=== PATIENT | female | born 1975 | race American Indian/Alaskan Native ===

== ENCOUNTER 2017-03-29 11:04 | Emergency (ER) | payer MEDICAID, OTHER ==
--- NOTE | 2017-03-29 12:08 | OBHP ---
Datetime: 03/29/2017 12:00 IP Adm Impression: Term, intrauterine ; No Active Labor IP Adm Impression Other: Advanced Maternal Age. Previous Section. IP Admit Plan: Observation/Evaluation Admit Comment, IP Provider: 42yo G2Pi with IUP at 37.4wks, Previous Section X1, here today for decreased movements and pelvic pressure. She denies VB or LOF. PNC with Dr Stern. Naselle- occasional contraction, FHR- Category 1, Cx-0/40/-3 Assessment: IUP at 37.4wks with Previous C/S X1 NST Reactive. Plan as per Dr Stern: NST BPP and Re evaluate. Pelvic Type - PN: Adequate Extremities - PN: Normal Abdomen - PN: Normal Back - PN: Normal Lungs - PN: Normal Heart - PN: Normal General - PN: Normal Presentation-Admit: Vertex FHR - Baseline A Provider: 140s Membranes, Provider: Intact Gestation - Est Wks by US: 37.4 EGA AdmitDate IP: 37.4 Vital Signs Provider: Reviewed IP Chief Complaint: Maternal discomfort NICHD Variability Prov Fetus A: Moderate 6-25bpm NICHD Accel Fetus A IP Provider: 15X15 FHR Category Provider Fetus A: Category I NICHD Decel Fetus A IP Provider: None Dilatation, Provider: 0 Effacement, Provider: 40 Station, Provider: -3
[2017-03-29 12:13] VITALS: BMI 33.1
[2017-03-29] MEDS ORDERED: Lactated Ringer's 1,000 ML IV SCH (13:00)
--- NOTE | 2017-03-29 14:55 | US ---
PROCEDURE: OB Pelvic Ultrasound HISTORY: Testing COMPARISON: None available. FINDINGS: Ultrasonography of a late stage was performed for evaluation of biophysical profile. breathing movements - 2, movements - 2, tones - 2, at and fluid - 2. Biophysical total score 8/8. A single viable intrauterine gestation is identified in cephalic lie with a posterior placenta. Study is limited due to late stage of gestation in standard biometry was not obtained this biophysical profile exam. N and fluid index measures 18.2 cm. cardiac activity measures 135 beats per minute. OTHER FINDINGS: None. IMPRESSION: A single viable intrauterine gestation identified in cephalic lie without definitive placental abruption or previa. Posterior placenta is identified and biophysical profile score has been calculated to 8/8 as per above.
[2017-03-29 20:11] VITALS: BP 107/66; PULSE 85; RESP 16; TEMP 97.7; O2SAT 97
== END 2017-03-29 16:00 | disposition home or self-care (01) ==
LOC: H.EROB2 11:04
DX: O47.1 False labor at or after 37 completed weeks of gestation (principal); O26.93 Pregnancy related conditions, unspecified, third trimester; R10.2 Pelvic and perineal pain; Z3A.37 37 weeks gestation of pregnancy; Z87.59 Personal history of other complications of pregnancy, childbirth and the puerperium
CPT/HCPCS: 76818; 99284; J7120

== ENCOUNTER 2017-04-02 20:29 | Inpatient (IN) | payer MEDICAID ==
[2017-04-02] MEDS ORDERED: ceFAZolin IV 2 gm in Dextrose 2 GM/50 ML BAG IVPB ONE (21:27)
[2017-04-02] MEDS ORDERED: Bicitra 30 ML UD PO ONE (21:28)
[2017-04-02] MEDS ORDERED: Oxytocin 30 UNITS in Sodium Chloride 0.9% 500 ML IV SCH (21:30)
[2017-04-02] MEDS: Lactated Ringer's 1,000 ML IV SCH ×2 (21:40→22:40)
[2017-04-02] MEDS ORDERED: OXYTOCIN/0.9 % NS 20 UNIT/1,000 ML BAG IV SCH (22:00)
[2017-04-02 22:04] VITALS: RESP 18
[2017-04-02 22:11] LABS: BASO # 0.1 K/uL (0.0-0.2); BASO % 0.7 % (0.0-2.0); EOS # 0.1 K/uL (0.0-0.7); EOS % 1.8 % (0.0-4.0); HEMATOCRIT 35.4 % (34.0-47.0); LYMPH % 24.2 % (20.0-40.0); MEAN CELL VOLUME 82.9 fl (81.0-99.0); MEAN CORPUSCULAR HEMOGLOBIN 26.7 pg (27.0-31.0); MEAN CORPUSCULAR HGB CONC 32.2 g/dL (33.0-37.0); MEAN PLATELET VOLUME 7.8 fl (7.2-11.7); MONO # 0.7 K/uL (0.0-0.8); MONO % 8.1 % (0.0-10.0); NEUT # 5.4 K/uL (1.8-7.0); NEUT % 65.2 % (50.0-75.0); NRBC % 0.2 % (0.0-0.0); RED CELL DISTRIBUTION WIDTH 15.7 % (11.5-14.5); WHITE BLOOD COUNT 8.3 K/uL (4.8-10.8)
[2017-04-02] MEDS ORDERED: Morphine 1 mg/ml preservative-free Inj(Duramorph) ONE (23:34)
[2017-04-02] MEDS ORDERED: ePHEDrine 50 mg/ml Inj ONE (23:39)
[2017-04-03] MEDS ORDERED: cefOXitin IV 1 gm in Dextrose 1 GM/50 ML BAG IVPB SCH (01:00)
--- NOTE | 2017-04-03 02:44 | OBADHP ---
Datetime: 04/02/2017 21:28 Admit Comment, IP Provider: 42yo with IUP at 38.1 wks GA based on LMP 07/09/16, EDC 04/15/17 pre sents to [facility] c/o SROM this evening. Reports +FM and ctx. Denies VB. Hx in 2010. PNC: Dr. 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 Pap: wnl in 09/2016 pmhx: denies pshx: socialhx: denies smoking cigarettes, drinking ETOH or recreational drug use. familyhx: father: HTN meds: pnv allergies: NKDA Assessement: 42 yo IUP @ 38.1 weeks GA has SROM GBS negative Plan: Admit to L_D Continuous heart tracing Labs NPO Dr. Stern is informed and pt is to have repeat tonight. Case d/w on-call hospitalist Dr. Cindy Sanford, PGY1 OB Hospitalist on-call...with PGY1, I saw and examined this patient...agree with note..A: IUP at 3 8w previous C/S in early labor SROM. Plan: discused with pmd and will prep for C/S (declined ) Extremities - PN: Normal Abdomen - PN: Normal Back - PN: Normal Lungs - PN: Normal Heart - PN: Normal Neurologic - PN: Normal HEENT - PN: Normal General - PN: Normal Presentation-Admit: Vertex FHR - Baseline A Provider: 130s Amniotic Fluid Color, Provider: Clear Membranes, Provider: Ruptured Comments, ACOG Physical Exam: SVE: 1/0/-3, grossly ruptured membrane. Pool Provider: Positive IP Hx Assessment: The History has been Reviewed and is Current Vital Signs Provider: Reviewed; Within Normal Limits IP Chief Complaint: Suspected ruptured membranes NICHD Variability Prov Fetus A: Moderate 6-25bpm NICHD Accel Fetus A IP Provider: 15X15 FHR Category Provider Fetus A: Category I NICHD Decel Fetus A IP Provider: None Dilatation, Provider: 1 Genitourinary Exam: Normal EGA AdmitDate IP: 38.1 IP Adm Impression: Term, intrauterine ; Ruptured Membranes IP Admit Plan: Admit to unit; Initiate Section protocol Datetime: 03/29/2017 12:00 IP Adm Impression Other: Advanced Maternal Age. Previous Section. Pelvic Type - PN: Adequate Gestation - Est Wks by US: 37.4 Effacement, Provider: 40 Station, Provider: -3
[2017-04-03] MEDS ORDERED: Oxytocin 30 UNITS in Sodium Chloride 0.9% 500 ML IV SCH (02:45)
[2017-04-03] MEDS: guaiFENesin DM 100 mg-10 mg/5 ml UD PO PRN ×5 (03:56→23:40)
--- NOTE | 2017-04-03 07:48 | OBDS ---
MATERNAL INFORMATION Estimated Blood Loss (ml): 800cc Maternal Complications: None Provider Comments: see surgerons dictated note LABOR SUMMARY EDC: 04/15/2017 00:00 No. Babies in Womb: 1 LABOR INFORMATION Group B Beta Strep: Negative Steroids Given: None Reason Steroids Not Administered: Not Applicable MEMBRANES Membranes Rupture Method: Spontaneous Amniotic Fluid Color: Clear Amniotic Fluid Odor: Normal VAGINAL DELIVERY Episiotomy: None Laceration Extension: N/A Laceration Type: None CSECTION DELIVERY Primary Indication: prev C/S in early labor Secondary Indication: SROM Labor: Labor CSection Incision: Lower Uterine Transverse Other Sterilization Procedure: Mod [place] Uterine Closure: Double-layer closure
[2017-04-03] MEDS: cefOXitin IV 1 gm in Dextrose 1 GM/50 ML BAG IVPB SCH ×2 (09:29→17:25)
[2017-04-03] MEDS: Oxycodone/Acetaminophen 5/325 mg Tab PO PRN (13:47)
[2017-04-04] MEDS: cefOXitin IV 1 gm in Dextrose 1 GM/50 ML BAG IVPB SCH (00:57)
[2017-04-04] MEDS: guaiFENesin DM 100 mg-10 mg/5 ml UD PO PRN ×4 (03:53→21:21)
[2017-04-04] MEDS: Oxycodone/Acetaminophen 5/325 mg Tab PO PRN ×2 (06:39→11:12)
[2017-04-04 08:06] LABS: MEAN CELL VOLUME 82.3 fl (81.0-99.0); MEAN CORPUSCULAR HEMOGLOBIN 26.6 pg (27.0-31.0); MEAN CORPUSCULAR HGB CONC 32.3 g/dL (33.0-37.0); RED CELL DISTRIBUTION WIDTH 16.3 % (11.5-14.5); WHITE BLOOD COUNT 12.1 K/uL (4.8-10.8)
--- NOTE | 2017-04-04 10:48 | OBPPN ---
Datetime: 04/04/2017 10:41 PP Pain Prov: Within normal limits PP Pain Prov comment: No SOB, chest pains or leg pains PP Nausea Prov: Denies PP Flatus Prov: Yes PP BM Prov: No PP Nausea Prov comment: No C/F PP Breasts Prov: Normal PP Lungs Prov: Normal PP Abdomen/Uterus Prov: Abnormal PP Lochia Prov: Normal PP Vulva/Perineum Prov: Normal PP CVA Tenderness Prov: Normal PP Extremities Prov: Normal PP C/S Incision Prov: Normal PP Progress Prov: Normal PP Comments Phys Exam Prov: breast not engorged NT, Abd soft not distended fundus firm below the umb . Dressing removed no active bleeding Lockia mod Ext mild edema bilaterally no calf tenderness PP Impression Prov: Normal progression PP Plan Prov: Continue present management PP Progress Note Prov: Continue PO and pp care OOB and ambulation CBC done stable IP PP Procedures: None Vital Signs Provider PP: Reviewed
[2017-04-05] MEDS: guaiFENesin DM 100 mg-10 mg/5 ml UD PO PRN ×5 (05:00→22:09)
--- NOTE | 2017-04-05 07:13 | OBPPN ---
Datetime: 04/05/2017 07:09 PP Pain Prov: Within normal limits PP Pain Prov comment: No SOB, chest or leg pains PP Nausea Prov: Denies PP Flatus Prov: Yes PP BM Prov: No PP Breasts Prov: Normal PP Lungs Prov: Normal PP Abdomen/Uterus Prov: Abnormal PP Lochia Prov: Normal PP Vulva/Perineum Prov: Normal PP CVA Tenderness Prov: Normal PP Extremities Prov: Normal PP C/S Incision Prov: Normal PP Progress Prov: Normal PP Comments Phys Exam Prov: breast not engorged, NT; Abd soft nd, fundus firm below the umb. Incisi on clean and dry no active bleeding Ext no calf tenderness PP Impression Prov: Normal progression PP Plan Prov: Continue present management PP Progress Note Prov: Dulcolax suppt this am, continue po care OOB and ambulation IP PP Procedures: None Vital Signs Provider PP: Reviewed
[2017-04-06] MEDS: guaiFENesin DM 100 mg-10 mg/5 ml UD PO PRN (05:49)
--- NOTE | 2017-04-06 08:26 | OBDCSUM ---
Datetime: 04/06/2017 08:24 Discharged to, Provider: Home Follow up at, Provider: Dr Stern Disch Instr Activity: Bedrest; May be up to bathroom; May be up for meals; May Shower Disch Instr Diet: Regular Discharge Instructions, Provider: Routine instructions given Discharge Diagnosis, Provider: Term Delivered Discharge Time: 04/06/2017 08:24 Follow up in weeks, Provider: 1 wk Contraception discussed, Prov: Yes Disch Activity Restrictions: No exercising; No lifting; No driving; Minimize walking; Minimize stair -climbing; No sexual activity; Nothing in vagina - Novice, tampons, douche Discharge Comment, Provider: Appt to Dr Govea office and rx for percocet given Instructions given Contraception after Delivery: Tubal Ligation
--- NOTE | 2017-04-06 08:26 | OBPPN ---
Datetime: 04/06/2017 08:21 PP Pain Prov: Within normal limits PP Pain Prov comment: No SOB, chest pains or leg pain PP Nausea Prov: Denies PP Flatus Prov: Yes PP BM Prov: Yes PP Nausea Prov comment: No C/F PP Breasts Prov: Normal PP Lungs Prov: Normal PP Abdomen/Uterus Prov: Abnormal PP Lochia Prov: Normal PP Vulva/Perineum Prov: Normal PP CVA Tenderness Prov: Normal PP Extremities Prov: Normal PP Comments Phys Exam Prov: breast NT, not engorged; Abd soft ND, fundus firm below the umb, incisi on clean and dry no active bleeding or sign of infection, ext mild elle edema but no calf tenderness. PP Impression Prov: Normal progression PP Plan Prov: Discharge PP Progress Note Prov: D/C home with instructions IP PP Procedures: None Vital Signs Provider PP: Reviewed
--- NOTE | 2017-04-06 12:07 | OP ---
PROCEDURE DATE: 04/03/2017 PREOPERATIVE DIAGNOSES: 1. at term. 2. Previous section in early labor. 3. Spontaneous rupture of membranes. 4. Multiparity and voluntary sterilization. POSTOPERATIVE DIAGNOSES: 1. at term. 2. Previous section in early labor. 3. Spontaneous rupture of membranes. 4. Multiparity and voluntary sterilization. PROCEDURES: 1. Repeat low-transverse segment section. 2. Bilateral tubal sterilization using a modified Alanna procedure. SURGEON: William Stern MD SHIRT FINISHER: Dr. White, who was there for the entire duration of the case. Buildings And Grounds Superintendent needed in positioning the patient, opening of the abdomen, delivery of the baby, and closure of the abdomen. TYPE OF ANESTHESIA: Spinal. ANESTHESIA ADMINISTERED BY: Dr. Husain. ESTIMATED BLOOD LOSS: 800 mL DRAINS USED: None. REPLACEMENTS USED: None. FINDINGS: 1. Delivered living baby girl, baby appears term, baby cried spontaneously. Pediatrist in attendance. score of 9 and 9. 2. Amniotic fluid clear. 3. Placenta complete and intact. 4. Both tubes and ovaries appeared grossly within normal limits to inspection bilaterally. 5. Bilateral tubal sterilization using a modified [place] procedure was then performed without any complications. DESCRIPTION OF PROCEDURE: The patient was taken to the operating room and placed on the operating table in a supine position. Following induction of spinal anesthesia, the patient was replaced in a supine position. At this time, a Valaldares catheter was inserted into the bladder and clear fluid was then evacuated from the bladder. Venodyne boots were applied to both legs. The abdomen was then draped and prepped in the usual sterile manner. Following this, anesthesia tested and found to be well secured and a Pfannenstiel incision was then made using sharp dissection along the edges of the previous incision. The subcutaneous tissue was then also incised using blunt and sharp dissection and hemostasis was obtained by means of electrocoagulation. Fascia was then identified, was then entered at the midline. Incision of the fascia was then extended laterally on each direction using sharp dissection. Rectus muscle was then slit in the midline exposing the peritoneum. Peritoneal layer was then picked up using two Joceline clamps, retracted superiorly, and then entered using sharp dissection. At this time, we then proceeded to extend the incision superiorly and inferiorly under direct visualization. The bladder was identified, was then retracted inferiorly using the Zora retractor. The low transverse segment of the uterus was then identified. The visceroperitoneum covering this area was then entered using sharp dissection. Following this, we then proceeded to create a bladder flap which was then retracted inferiorly using the same [place] retractor. An incision was then made in the low transverse segment of the uterus. Upon entering the uterine cavity, clear fluid noted to be present. The incision was then extended laterally on each direction using bandage scissors. Using amnioscopy procedure, a living baby girl was then delivered. The baby was immediately aspirated using a bulb suction. The baby cried spontaneously. The umbilicus was then doubly clamped, cut, and the baby handed to the pediatric personnel who was standing by. Samples of cord blood were then obtained and the placenta was then delivered complete and intact. The uterus was then exteriorized in order to provide better visualization. The uterine cavity was then thoroughly cleaned using moist lap pad and the uterus massaged and contracted well. Uterine incision was secured using multiple T clamps and was then approximated using 0 Vicryl suture in a continuous interlocking manner. Hemostasis was checked and found to be well secured. A second layer was also applied also using 0 Vicryl suture in a continuous manner. Again, hemostasis was checked and found to be well secured. Bladder flap was then approximated using a 2-0 Vicryl in a continuous manner. Both tubes and ovaries were then inspected and found to be grossly within normal limits to inspection bilaterally. The patient had already requested tubal sterilization and again already consented to this. The right fallopian tube was followed to its fimbriated end and grasped at the ampullary region using a Alis clamp and retracted superiorly. A 2-0 chromic was then passed through the mesosalpinx and this section of the tube was then ligated. A free tie using 2-0 chromic suture was then placed underneath the ligature and the ligated section of the tube was then resected and the specimen sent to pathology for proper pathological evaluation. At this time, the same procedure was then performed on the contralateral side without any complications. Free amniotic fluid and blood evacuated from the pelvic cavity. The pelvic cavity was then thoroughly cleaned using saline solution and the uterus was then allowed to retract back into its original position. All operative areas checked, hemostatically secured. Both tubes and ovaries ligated, areas appeared to be hemostatically secured. The peritoneum was then closed using 0 Vicryl suture in a continuous manner. Rectus muscle was then approximated the midline using several interrupted 2-0 Vicryl suture. The fascia was then identified, was then approximated using 0 Vicryl suture in a continuous manner. Fascia was then checked and found to be free of defect. Subcutaneous tissue was then irrigated using saline solution and approximated using several interrupted 2-0 plain suture. The skin was then approximated using a 3-0 Prolene in a subcuticular fashion. Steri-Strips were then applied. The patient tolerated the procedure well. There were no complications. Clear fluid noted to be present in the Vallada[place] bag. Sponge, instrument, and needle counts correct x3. The patient was then transferred to the recovery room in satisfactory condition. William Stern MD
[2017-04-06 20:24] VITALS: BP 115/62; PULSE 96; TEMP 98.2; O2SAT 98
== END 2017-04-06 15:26 | disposition home or self-care (01) | DRG 371 ==
LOC: H.EROB2 20:29 → H.L&D 21:24 → H.OB/GYN 04-03 05:40
PROVIDERS: ADMIT Specialist; ATTEND Specialist
PROC: 4A1HXCZ Monitoring of Products of Conception, Cardiac Rate, External Approach (ICD-10-PCS; 2017-04-02)
PROC: 10D00Z1 Extraction of Products of Conception, Low, Open Approach (ICD-10-PCS; principal; 2017-04-03)
PROC: 0UB70ZZ Excision of Bilateral Fallopian Tubes, Open Approach (ICD-10-PCS; 2017-04-03)
DX: O34.219 Maternal care for unspecified type scar from previous cesarean delivery (principal); O09.43 Supervision of pregnancy with grand multiparity, third trimester; Z30.2 Encounter for sterilization; Z37.0 Single live birth; Z3A.38 38 weeks gestation of pregnancy; O09.523 Supervision of elderly multigravida, third trimester; Z91.018 Allergy to other foods